=== PATIENT | female | born 1935 | race Caucasian/White ===

== ENCOUNTER 2022-05-22 13:37 | Outpatient (CLI) | payer MEDICARE, SELFPAY ==
--- NOTE | ~2022-05-22 | XR_ITS ---
EXAMINATION: XR tibia fibula RT 2V, XR foot RT min 3V DATE: 05/22/2022 14:07 INDICATION: Swelling and erythema to the distal right tibia/fibula TECHNIQUE: 1. AP and lateral views of the right lower leg were obtained. 2. Dorsal plantar, lateral and 2 oblique views of the right foot were obtained. COMPARISON: None. FINDINGS: Diffuse osteopenia. Bone alignment is normal. No fracture. 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 No cortical erosions or periosteal reaction . Moderate-sized plantar calcaneal spur. No right ankle joint effusion. There is soft tissue swelling with subcutaneous edema about the mid to distal right lower leg extending around the ankle. IMPRESSION: 1. Degenerative skeletal changes at the right foot and knee. No acute osseous abnormality. Reviewed, dictated and finalized at location A. IMPRESSION: 1. Degenerative skeletal changes at the right foot and knee. No acute osseous a bnormality.
== END 2022-05-22 13:38 | disposition home or self-care (01) ==
PROVIDERS: PCP Family Medicine; Visit Provider Physician Assistant Medical
DX: S89.91XA Unspecified injury of right lower leg, initial encounter (principal); M17.11 Unilateral primary osteoarthritis, right knee; M77.31 Calcaneal spur, right foot; M79.89 Other specified soft tissue disorders
CPT/HCPCS: 73590; 73630

== ENCOUNTER 2023-06-27 14:18 | Outpatient (CLI) | payer MEDICARE, SELFPAY ==
--- NOTE | ~2023-06-27 | XR_ITS ---
XR chest 2V DATE: 06/27/2023 14:45 INDICATION: Shortness of breath for 2 months. Occasional right chest pressure. TECHNIQUE: PA and lateral views COMPARISON: 09/14/2009 two-view chest FINDINGS: There is moderate right diaphragmatic elevation. There is mild infiltrate or atelectasis in both lower lung zones. Borderline heart size. There is aortic calcification and unfolding. There is increased prominence of the right hilum compared to 09/14/2009; consider CT thorax for further evaluation as clinically approp riate to exclude right hilar mass lesion or adenopathy. Diffuse osteopenia. Osteoarthritic change at the glenohumeral joints. Thoracolumbar scoliosis and deg enerative change. IMPRESSION: Moderate elevation right diaphragm Mild infiltrate and/or atelectasis in the lower lung zones Right hilum appears more prominent since 09/14/2009; right hilar mass or adenopathy is not excluded. C onsider CT thorax for further evaluation as clinically appropriate Reviewed, dictated and finalized at location L. IMPRESSION: Moderate elevation right diaphragm Mild infiltrate and/or atelectasis in the lower lung zones Right hilum appears more prominent since 09/14/2009; right hilar mass or adenopa thy is not excluded. Consider CT thorax for further evaluation as clinically ap propriate
[2023-06-27 15:11] LABS: Hemoglobin 12.5 g/dL (12.0-15.0); Mean Corpuscular HGB Conc 32.1 g/dl (32-36); Mean Corpuscular Volume 93.8 fl (80-100); Mean Platelet Volume 10.3 fl (7.4-10.4); Platelet Count Result 178 k/mm3 (150-375); Red Blood Count 4.16 M/mm3 (4.2-5.4); Red Cell Distribution Width 13.8 % (11.5-14.5); White Blood Count 8.3 K/mm3 (4.5-10.0)
[2023-06-27 16:09] LABS: Alanine Aminotransferase 27 U/L (6-35); Albumin Level 4.1 g/dL (3.5-5.1); Alkaline Phosphatase 76 U/L (38-126); Anion Gap 7 mmol/L (8-16); Aspartate Amino Transferase 32 U/L (14-36); Bilirubin,Total 0.9 mg/dL (0.2-1.3); Blood Urea Nitrogen 21 mg/dL (7-17); Calcium 9.4 mg/dL (8.4-10.2); Carbon Dioxide 29 mmol/L (22-30); Chloride 100 mmol/L (98-107); Estimated Glomerular Filt Rate 59; Glucose 154 mg/dL (65-110); Potassium 3.5 mmol/L (3.4-5.0); Sodium 136 mmol/L (137-145)
[2023-06-27 16:35] LABS: NT Pro B Type Natriuretic Pept 540 pg/mL (19.9-100)
== END 2023-06-27 14:19 | disposition home or self-care (01) ==
PROVIDERS: PCP Family Medicine; Visit Provider Nurse Practitioner Family
DX: I10 Essential (primary) hypertension (principal); E11.9 Type 2 diabetes mellitus without complications; R06.02 Shortness of breath; R91.8 Other nonspecific abnormal finding of lung field
CPT/HCPCS: 36415; 71046; 80053; 83880; 84443; 85027

== ENCOUNTER 2023-07-11 10:16 | Outpatient (CLI) | payer MEDICARE, SELFPAY ==
--- NOTE | ~2023-07-11 | CT_ITS ---
Clinical Indication: Chest wall mass CT Scan of the Chest with Contrast: Technique: Contiguous sections were acquired throughout the chest after intravenous administration of 75 cc of Omnipaque 350. Dose reduction technique was used on this scan by utilizing automated exposu re control and iterative reconstruction technique. The dose-length product (DLP) was 587.02 mGy-cm. Findings: There is no evidence of any significant mediastinal, hilar or axillary lymphadenopathy. There is no f illing defect in the pulmonary arterial tree to suggest pulmonary embolus. There is no evidence of ao rtic dissection or aneurysm. There is no evidence of pleural or pericardial effusion. The lungs are clear. No pulmonary nodules or infiltrates are noted. Images through the upper abdomen reveal cholelithiasis, and probable 1.1 cm left adrenal nodule. There is suggestion of a partially imaged right supra soft tissue mass at the right breast region, pa rtially excluded from the [id number]. Impression: Exophytic superficial soft tissue mass at the right breast, partially excluded from the [id number] . This is indeterminate on CT imaging, but is suspicious for breast cancer. Correlation with physical exam recommended. Consider tissue sampling if not artery performed. Clear lungs. Cholelithiasis. 1.1 cm left adrenal nodule. Reviewed, dictated and finalized at location . 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 This is indeterminate on CT imaging, but is suspicious for breast cancer. Correlation with physical exam recommended. Consider tissue sampling if not artery performed. Clear lungs. Cholelithiasis. 1.1 cm left adrenal nodule.
== END 2023-07-11 10:17 | disposition home or self-care (01) ==
LOC: ANHIMG 10:18
PROVIDERS: PCP Family Medicine; Visit Provider Nurse Practitioner Family
DX: R22.2 Localized swelling, mass and lump, trunk (principal); K80.20 Calculus of gallbladder without cholecystitis without obstruction; D35.02 Benign neoplasm of left adrenal gland
CPT/HCPCS: 71260; Q9967

== ENCOUNTER 2023-08-28 09:30 | Emergency (ER) | payer MEDICARE, SELFPAY ==
--- NOTE | ~2023-08-28 | CT_ITS ---
EXAMINATION: CT abdomen pelvis w con DATE: 08/28/2023 10:50 INDICATION: Left lower quadrant abdominal pain. Rectal bleeding. TECHNIQUE: Computed tomography (CT) of the abdomen and pelvis was performed with 100 CC Omnipaque 350 intravenous contrast. Automated exposure control and iterative reconstruction technique were employe d. Exam dose: 1243.60 mGy-cm total exam DLP. COMPARISON: 11/05/2014 CT abdomen pelvis FINDINGS: There is mild discoid atelectasis and/or scarring at the lung bases. Coronary artery calcifications. There is chronic skin thickening of the right breast compared to the left, also present on 11/05/2014. No pericardial or pleural effusion. Medial segment left hepatic cyst measuring up to 2.1 cm and 8 mm probable right hepatic cyst. The katharine er is otherwise unremarkable. 2.1 cm gallstone. No gallbladder wall thickening or pericholecystic fluid or fat stranding. No bile d uct or pancreatic duct dilatation. There is an approximately 4 mm cyst of the pancreatic tail. No other pancreatic space-occupying mass lesion is evident. The adrenal glands are unremarkable. Splenic size is within normal range. 2.3 cm upper pole right renal cyst. 7 mm upper pole right renal cyst. Very small lower pole right abisai al cyst. 2.9 cm exophytic lower pole left renal cyst. There is an additional 5 mm probable left renal cyst. No urinary tract calculus or hydroureteronephrosis. There is focal pericolic fat stranding in the region of the proximal sigmoid colon diverticulum consi stent with uncomplicated proximal sigmoid colon acute diverticulitis. There are numerous diverticula of the left and right colon. No evidence of appendicitis. No bowel obstruction or intraperitoneal free air is detected. The urinary bladder is unremarkable. Status post hysterectomy. There is atherosclerotic calcification but normal caliber of the abdominal aorta. No intraperitoneal or retroperitoneal or pelvic mass lesion or adenopathy or ascites is detected. Approximately 4 x 4.8 x 5.7 cm fat-containing umbilical hernia. Multilevel severe degenerative disc disease of the thoracic and lumbar spine. Prominent degenerative changes apophyseal joints with associated grade 1 anterolisthesis at L4-5 and L5-S1. IMPRESSION: Uncomplicated acute focal diverticulitis of proximal sigmoid colon Diverticulosis of left and right colon Cholelithiasis 4 mm pancreatic tail cyst Bilateral renal cysts Status post hysterectomy Reviewed, dictated and finalized at Location A. Reviewed, dictated and finalized at location B. 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
[2023-08-28 09:41] VITALS: BP 207/92; PULSE 102; RESP 22; TEMP 36.5; O2SAT 94
[2023-08-28 10:03] LABS: Basophils Percent Auto 0.4 % (0.2-1.2); Eosinophils Absolute Auto 0.4 K/mm3 (0-0.3); Eosinophils Percent Auto 4.5 % (0-4.4); Hematocrit 38.8 % (37.0-47.0); Hemoglobin 12.5 g/dL (12.0-15.0); Immature Granulocyte Absolute 0.05 K/mm3 (0.00-0.031); Immature Granulocyte Percent A 0.6 % (0-0.5); Lymphocytes Absolute Auto 1.93 K/mm3 (0.9-3.2); Lymphocytes Percent Auto 24.3 % (18.3-44.2); Mean Corpuscular HGB Conc 32.2 g/dl (32-36); Mean Corpuscular Hemoglobin 30.3 pg (26-34); Mean Corpuscular Volume 94.2 fl (80-100); Mean Platelet Volume 10.4 fl (7.4-10.4); Monocytes Absolute Auto 0.5 K/mm3 (0.1-0.6); Monocytes Percent Auto 6.3 % (2.6-8.5); Neutrophils Absolute Auto 5.1 K/mm3 (1.3-6.7); Neutrophils Percent Auto 63.9 % (45.5-73.1); Platelet Count Result 183 k/mm3 (150-375); Red Blood Count 4.12 M/mm3 (4.2-5.4); Red Cell Distribution Width 13.9 % (11.5-14.5)
[2023-08-28 10:15] LABS: Prothrombin Time 13.4 Seconds (11.1-14.7)
[2023-08-28 10:16] VITALS: BP 214/93; PULSE 83; RESP 19; O2SAT 97
[2023-08-28 10:26] LABS: Alanine Aminotransferase 25 U/L (6-35); Albumin Level 4.2 g/dL (3.5-5.1); Alkaline Phosphatase 88 U/L (38-126); Anion Gap 10 mmol/L (8-16); Aspartate Amino Transferase 26 U/L (14-36); Bilirubin,Total 1.2 mg/dL (0.2-1.3); Blood Urea Nitrogen 16 mg/dL (7-17); Calcium 9.3 mg/dL (8.4-10.2); Carbon Dioxide 30 mmol/L (22-30); Chloride 99 mmol/L (98-107); Estimated Glomerular Filt Rate > 60; Glucose 187 mg/dL (65-110); Potassium 3.4 mmol/L (3.4-5.0); Sodium 139 mmol/L (137-145)
[2023-08-28 10:55] VITALS: BP 188/88; PULSE 85; RESP 15; O2SAT 95
[2023-08-28 12:04] VITALS: BP 149/95; PULSE 94; RESP 18; O2SAT 99
--- NOTE | 2023-08-28 12:29 | ED.GENADULT ---
HPI - General Adult General Chief complaint: GI Bleed Stated complaint: rectal bleeding Time Seen by Provider: 08/28/23 09:40 History of Present Illness HPI narrative: Patient is an 88-year-old female who presents ER with left-sided abdominal pain and rectal bleeding. Ongoing over last 3 days. Bright red. No fevers or chills or sweats. No nausea or vomiting. Patient has history of breast cancer and it may be recurring and she does not want to talk about. She reports compliance with home blood pressure medication those elevated upon arrival here. Pain is nonradiating. Has history of diverticulitis. No urinary symptoms. Related Data Home Medications Medication Instructions Recorded Confirmed anastrozole 1 mg tablet (Arimidex) 1 mg PO DAILY 09/23/19 06/27/23 Allergies Allergy/AdvReac Type Severity Reaction Status Date / Time lisinopril Allergy Intermediate CHEST Verified 06/27/23 13:13 PRESSURE,FLUSING, HEART IRREG.. alendronate sodium Allergy Mild Unknown Verified 06/27/23 13:13 Penicillins Allergy Unknown Rash Verified 06/27/23 13:13 codeine AdvReac Unknown Nausea Verified 08/28/23 10:12 tramadol AdvReac Unknown Nausea Verified 08/28/23 10:12 Review of Systems Review of Systems: All systems reviewed & are unremarkable except as noted in HPI and below Constitutional: Constitutional: Reports no additional constitutional complaints ENT: Reports system reviewed and no additional complaints, except as documented Cardiovascular: Cardiovascular: Reports no additional cardiovascular complaints Respiratory: Respiratory: Reports no additional respiratory complaints Gastrointestinal: Gastrointestinal: Reports abdominal pain, Denies constipation, Denies diarrhea, Denies nausea and Denies vomiting Genitourinary: Genitourinary: Reports no additional female genitourinary complaints [facility] Past Medical History Medical History Ataxia BMI 35.0-35.9,adult BMI 36.0-36.9,adult BMI 37.0-37.9, adult Body mass index (BMI) of 40.1 to 44.9 in adult Breast cancer 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 Memory deficit Type 2 diabetes mellitus with hyperglycemia Family History Family History Mother Acute myocardial infarction Hypoglycemia Father Other Breast cancer Cerebrovascular accident Diabetes mellitus Family history of cardiovascular disease Family history of coronary artery disease Family history of malignant neoplasm of male breast Hypertension Social History Social History Smoking status: Never smoker Second hand tobacco smoke exposure: Yes Alcohol intake: never Substance use: never Substance use type: does not use Living arrangements: with family Occupation/Education: retired 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 Gender identity (if verbalized by the patient): Female Exam Narrative: GENERAL: Well-appearing, Obese, and in no acute distress. HEAD: Normocephalic, atraumatic. ENT: Mucous membranes moist. NECK: Supple. CHEST: Clear to auscultation. No respiratory distress. HEART: Regular rate and rhythm. Normal peripheral pulses. ABDOMEN: Soft, tender palpation left lower quadrant that is mild, nondistended. Hemoccult-negative stool. EXTREMITIES: Normal range of motion. No edema. SKIN: Warm, dry, no rash. NEURO: Alert and oriented x3. PSYCH: Normal mood and affect. Course Course Emergency Course: Patient informed of results. Comfortable discharge home. Blood pressure normalized in the ER. Vital Signs Vital signs: Vital Signs Temperature 97.7 F 08/28/23 09:41 Pulse Rate 102 H 08/28/23 09:41 Respiratory Rate 22 H 08/28/23 09:41 Bloo
[2023-08-28 13:15] VITALS: BP 194/71; PULSE 70; RESP 14; O2SAT 96
== END 2023-08-28 13:29 | disposition home or self-care (01) ==
PROVIDERS: Emergency Provider Emergency Medicine; PCP Family Medicine
DX: K57.32 Diverticulitis of large intestine without perforation or abscess without bleeding (principal); E11.9 Type 2 diabetes mellitus without complications; Z85.3 Personal history of malignant neoplasm of breast; Z90.710 Acquired absence of both cervix and uterus; N28.1 Cyst of kidney, acquired; K86.2 Cyst of pancreas; K80.20 Calculus of gallbladder without cholecystitis without obstruction; K57.90 Diverticulosis of intestine, part unspecified, without perforation or abscess without bleeding; Z79.84 Long term (current) use of oral hypoglycemic drugs
CPT/HCPCS: 36415; 74177; 80053; 85025; 85610; 85730; 86850; 86900; 86901; 99284; Q9967

== ENCOUNTER 2023-11-06 12:20 | Outpatient (CLI) | payer MEDICARE, SELFPAY ==
[2023-11-06 13:01] LABS: Magnesium 1.9 mg/dL (1.6-2.3)
[2023-11-06 13:23] LABS: Vitamin D 25 Hydroxy 40.4 ng/mL
== END 2023-11-06 12:21 | disposition home or self-care (01) ==
LOC: ANHLAB 12:22
PROVIDERS: PCP Family Medicine; Visit Provider Nurse Practitioner Family
DX: R25.2 Cramp and spasm (principal); E55.9 Vitamin D deficiency, unspecified
CPT/HCPCS: 36415; 82306; 82607; 83735

== ENCOUNTER 2024-05-26 23:45 | Inpatient (IN) | payer MEDICARE, SELFPAY ==
--- NOTE | ~2024-05-26 | US_ITS ---
EXAMINATION: US venous doppler [facility] DATE: 05/27/2024 17:30 INDICATION: Lower limb swelling. TECHNIQUE: Grayscale ultrasound images without and with compression and Doppler ultrasound images of the bilateral lower extremity veins were obtained. COMPARISON: None. FINDINGS: The visualized portions of right common femoral vein, profunda (deep) femoral vein, femoral vein, pop liteal vein, peroneal veins, posterior tibial veins, and greater saphenous vein outflow are patent. The visualized portions of left common femoral vein, profunda femoral vein, femoral vein, popliteal v ein, peroneal veins, posterior tibial veins, and greater saphenous vein outflow are patent. IMPRESSION: 1. No deep venous thrombosis. Reviewed, dictated and finalized at location A.
--- NOTE | ~2024-05-26 | CT_ITS ---
CT head without contrast Indication: Head injury Technique: Serial scans were obtained through the brain without the administration of contrast. Dose reduction technique was used on this scan by utilizing automated exposure control and iterative recon struction technique. The dose-length product (DLP) was 832.33 mGy-cm. Findings: There is no evidence of intracranial hemorrhage, mass lesion, or acute infarct. The ventri cles and subarachnoid spaces are dilated, consistent with mild atrophy. Low attenuation regions are seen within the periventricular white matter bilaterally, likely representing changes from chronic mi crovascular ischemic disease. There is no evidence of edema, mass effect or midline shift. The visu alized paranasal sinuses and mastoid air cells are clear. Impression: No intracranial hemorrhage, mass, or acute infarct. Atrophy and chronic white matter changes, as above. Reviewed, dictated and finalized at location . Impression: No intracranial hemorrhage, mass, or acute infarct. Atrophy and chronic white matter changes, as above.
--- NOTE | ~2024-05-26 | CT_ITS ---
EXAMINATION:CT diagnostic chest wo con DATE: 05/27/2024 15:02 INDICATION: Pneumonia. TECHNIQUE: Computed tomography (CT) of the chest was performed without intravenous contrast. Automate d exposure control and iterative reconstruction technique were employed. The dose-length product (DLP ) was 602.00 mGy-cm. COMPARISON: Chest CT 07/11/2023, chest single view 05/27/2024 FINDINGS: There is elevation of right hemidiaphragm. The lungs demonstrate mild atelectasis. A calcif ied right lung nodule and calcified mediastinal lymph nodes are consistent with old granulomatous dis ease. No pleural effusion. Cardiomegaly is noted. There are coronary artery calcifications. No perica rdial effusion. There is a 1.8 cm cyst in the liver. There is a gallstone in the gallbladder, which i s normal in size. There are nodules in the thyroid measuring up to 17 mm. Further evaluation is likel y not needed given the patient's age. The central pulmonaries are enlarged, consistent with pulmonary arterial hypertension. There is a 2.5 cm cyst in right kidney. There is a chronic 12 mm mass in left adrenal gland, likely an adenoma. There is diverticulosis of the colon without evidence of diverticu litis. There is severe cervical, thoracic, and lumbar spondylosis. IMPRESSION: 1. Chronic elevation of right hemidiaphragm. 2. Mild atelectasis in the lungs. Reviewed, dictated and finalized at location A.
--- NOTE | ~2024-05-26 | XR_ITS ---
Portable chest x-ray Comparison: 06/27/2023 Clinical History: Syncope Findings: There is mild bibasilar haziness, left worse than right. No pleural effusion. Cardiomedia stinal silhouette is stable. Degenerative change of both shoulders noted. Impression: Mild bibasilar haziness, left worse than right. Correlate for minimal pulmonary edema, versus possibl e infection. Reviewed, dictated and finalized at location . Impression: Mild bibasilar haziness, left worse than right. Correlate for minimal pulmonary edema, versus possible infection.
[2024-05-26 23:45] VITALS: BP 252/126; PULSE 98; RESP 16; TEMP 36.9; O2SAT 96
--- NOTE | 2024-05-26 23:49 | ECG_ITS ---
Test Date: 2024-05-26 23:57:37 Measurements Intervals [place] Rate: 92 P: 8 WV: 167 QRS: -4 QRSD: 103 T: 71 QT: 364 QTc: 450 Interpretive Statements SINUS RHYTHM WITH OCCASIONAL VENTRICULAR PREMATURE COMPLEXES POSSIBLE LEFT ATRIAL ENLARGEMENT [-0.1mV P WAVE IN V1/V2] NONSPECIFIC ST & T-WAVE ABNORMALITY ABNORMAL ECG No previous ECG available for comparison Electronically Signed On 05-27-2024 13:51:38 CDT by Vipul Mccrary M.D.
[2024-05-26 23:53] VITALS: PULSE 100; RESP 15; O2SAT 93
[2024-05-27] VITALS (31 sets, daily range): BP systolic 153–206; BP diastolic 64–97; PULSE 59–118; RESP 13–22; TEMP 35.7–36.7; O2SAT 91–96; BMI 43.6
--- NOTE | 2024-05-27 | ECHO_ITS ---
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 Contrast/Agitated Saline Contrast/Ag. Saline: Definity Amount: 4.00 ml Existing IV Access: Yes IV Access Condition: patent with no signs of infiltration Summary 1. The left ventricular size is mildly dilated. There is moderate eccentric left ventricular hypertrophy. 2. The left ventricular systolic function is mildly reduced. The LVEF is 40-45%. Left Ventricle The left ventricular size is mildly dilated. There is moderate eccentric left ventricular hypertrophy. The left ventricular systolic function is mildly reduced. The LVEF is 40-45%. Right Ventricle The right ventricle size and systolic function is normal. Left Atria Left atrial chamber dimension is normal. Right Atria Right atrial chamber dimension is normal. Aortic Valve Aortic valve is trileaflet. It is sclerotic. There is no evidence of aortic valve stenosis or regurgitation. Pulmonic Valve The pulmonic valve is not well visualized. There is no Doppler color evidence of pulmonic valve regurgitation. Mitral Valve With the mitral valve is sclerotic. There is mild mitral regurgitation. Tricuspid Valve The tricuspid valve is not well visualized. There is trace tricuspid regurgitation. Pericardium/Pleural Pericardium is normal in appearance with no evidence for significant pericardial effusion. Inferior Vena Cava Inferior vena cava is not well visualized. Left Ventricular Outflow Tract Name Value Normal LVOT 2D LVOT Diameter 1.89 cm LVOT Doppler LVOT Peak Gradient 3 mmHg LVOT Mean Gradient 1 mmHg LVOT VTI 20.21 cm LVOT VTI/AV VTI Ratio 0.58 LVOT Stroke Volume 56.72 ml LVOT CO 3.00 l/min LVOT CI 1.49 L/min/m2 Pulmonic Valve Name Value Normal PV Doppler PV Peak Gradient 2 mmHg Mitral Valve Name Value Normal
[2024-05-27 00:17] LABS: Basophils Percent Auto 0.5 % (0.2-1.2); Eosinophils Absolute Auto 0.4 K/mm3 (0-0.3); Eosinophils Percent Auto 4.5 % (0-4.4); Hematocrit 41.7 % (37.0-47.0); Hemoglobin 13.9 g/dL (12.0-15.0); Immature Granulocyte Absolute 0.14 K/mm3 (0.00-0.031); Immature Granulocyte Percent A 1.6 % (0-0.5); Lymphocytes Absolute Auto 2.48 K/mm3 (0.9-3.2); Lymphocytes Percent Auto 28.4 % (18.3-44.2); Mean Corpuscular HGB Conc 33.3 g/dl (32-36); Mean Corpuscular Hemoglobin 31.4 pg (26-34); Mean Corpuscular Volume 94.1 fl (80-100); Mean Platelet Volume 10.5 fl (7.4-10.4); Monocytes Absolute Auto 0.5 K/mm3 (0.1-0.6); Monocytes Percent Auto 6.2 % (2.6-8.5); Neutrophils Absolute Auto 5.2 K/mm3 (1.3-6.7); Neutrophils Percent Auto 58.8 % (45.5-73.1); Platelet Count Result 172 k/mm3 (150-375); Red Blood Count 4.43 M/mm3 (4.2-5.4); Red Cell Distribution Width 13.7 % (11.5-14.5); White Blood Count 8.7 K/mm3 (4.5-10.0)
[2024-05-27 00:23] LABS: Add Urine Microscopic? YES; Appearance Urine Clear (Clear); Bacteria Urine None Seen /hpf; Bilirubin Urine Negative (Negative); Blood Urine Negative (Negative); Color Urine Yellow (Yellow); Glucose Urine UA Trace mg/dL (Negative); Ketones Urine Negative (Negative); Leukocyte Esterase Ur Negative LEU/UL (Negative); Nitrate Urine Negative (Negative); Non Pathogenic Casts 0-2; Protein Urine 3+ mg/dL (Negative); RBC Urine 0-2 /hpf (0-2); Specific Grav Ur 1.008 (1.001-1.035); Squamous Epithelial Cell Urine None Seen /hpf (Few); Urobilinogen Urine 0.2 mg/dL (<2.0); WBC Urine 0-5 /hpf (0-3); pH Urine 7.5 (5.0-9.0)
[2024-05-27 00:28] LABS: Alanine Aminotransferase 37 U/L (6-35); Albumin Level 4.5 g/dL (3.5-5.1); Alkaline Phosphatase 123 U/L (38-126); Anion Gap 10 mmol/L (4-12); Aspartate Amino Transferase 42 U/L (14-36); Bilirubin,Total 0.9 mg/dL (0.2-1.3); Blood Urea Nitrogen 20 mg/dL (7-17); Calcium 9.5 mg/dL (8.4-10.2); Carbon Dioxide 27 mmol/L (22-30); Chloride 99 mmol/L (98-107); Estimated CRCL calculation 79 ml/min; Estimated Glomerular Filt Rate > 60; Glucose 200 mg/dL (65-110); Lactic Acid Reflex 2.2 mmol/L (0.7-2.0); Potassium 3.5 mmol/L (3.4-5.0); Sodium 136 mmol/L (137-145)
[2024-05-27 01:19] LABS: Magnesium 1.7 mg/dL (1.6-2.3)
[2024-05-27 01:32] LABS: Troponin I 0.027 ng/mL (0.000-0.034)
[2024-05-27 03:15] LABS: Reflex Lactic Acid Yes or No Add Lactic
--- NOTE | 2024-05-27 03:45 | ED.GENADULT ---
HPI - General Adult General Chief complaint: Dizziness Stated complaint: FALL, DIZZINESS, HIGH B/P Time Seen by Provider: 05/27/24 00:24 History of Present Illness HPI narrative: Patient is 89-year-old female who presents emergency department with chief complaint of syncope. Patient reports that she became dizzy while she was walking felt lightheaded and then became unresponsive and fell to the ground the patient reports that she felt nauseated afterwards reports she has little bit of a headache patient denies any other injuries when EMS arrived they found the patient to be extremely hypertensive and transported patient to the emergency department. Related Data Allergies Allergy/AdvReac Type Severity Reaction Status Date / Time lisinopril Allergy Intermediate CHEST Verified 02/24/24 15:03 PRESSURE,FLUSING, HEART IRREG.. alendronate sodium Allergy Mild Unknown Verified 02/24/24 15:03 Penicillins Allergy Unknown Rash Verified 02/24/24 15:03 codeine AdvReac Unknown Nausea Verified 02/24/24 15:03 tramadol AdvReac Unknown Nausea Verified 02/24/24 15:03 Review of Systems Review of Systems: A 10 system review of systems was completed on the patient and is negative except for what is stated in the HPI. Nursing and ancillary documentation was reviewed. 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 Memory deficit Type 2 diabetes mellitus with hyperglycemia Surgical History Surgical History History of breast biopsy Family History Family History Mother Acute myocardial infarction Hypoglycemia Father Other Breast cancer Cerebrovascular accident Diabetes mellitus Family history of cardiovascular disease Family history of coronary artery disease Family history of malignant neoplasm of male breast Hypertension Social History Social History Smoking status: Never smoker Second hand tobacco smoke exposure: Yes Alcohol intake: never Substance use: never Substance use type: does not use Do You Feel Safe in your Home?: Yes Lack of Transportation: No Lack of Food: Never True Current Housing: I Have Housing Concerned About Future Housing: No Difficulty Paying Gas/Electric Bills: No Difficulty Paying for Meds: No Currently Unemployed: No Education: High School Diploma/GED Difficulty w/ Childcare or Family Care: No Living arrangements: with family Occupation/Education: retired 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 Gender identity (if verbalized by the patient): Female Exam Narrative: GENERAL: Well-appearing, well-nourished, and in no acute distress. HEAD: Normocephalic, atraumatic. EYES: PERRLA and EOMI. ENT: Nares clear, no rhinorrhea or epistaxis. Mucous membranes moist. NECK: Supple. CHEST: Clear to auscultation. No respiratory distress. HEART: Regular rate and rhythm. No murmur heard. Normal peripheral pulses. ABDOMEN: Soft, nontender, nondistended, normal active bowel sounds. EXTREMITIES: Normal range of motion. No edema. SKIN: Warm, dry, no rash. NEURO: No focal deficits. Alert and oriented x3. PSYCH: Normal mood and affect. Course Vital Signs Vital signs: Vital Signs Temperature 36.9 C 05/26/24 23:45 Pulse Rate 98 05/26/24 23:45 Respiratory Rate 16 05/26/24 23:45 Blood Pressure 252/126 H 05/26/24 23:45 Pulse Oximetry 96 05/26/24 23:45 Oxygen Delivery Ro
[2024-05-27] MEDS: ASPIRIN 81 MG CHEWABLE TABLET 324 MG PO (03:57)
[2024-05-27 04:19] LABS: Lactic Acid 1.8 mmol/L (0.7-2.0)
--- NOTE | 2024-05-27 04:57 | PM.IMHP ---
H&P: HPI History of Present Illness Date/Time: 05/27/24 04:57 Chief Complaint: syncope, hypertensive crisis Narrative: This is an 89-year-old female patient admitted to the hospital for severe hypertension syncope minor head injury. Patient was at home ambulatory with dizzy and fell nearly passing struck the back of her head on the ground. EMS found her severely hypertensive brought her to the emergency department. Patient does take Eliquis. CT scan of the head no evidence of intracranial bleeding. Blood pressure did improve without immediate intervention. EKG nonischemic. No known history of CHF. One-view chest x-ray with possible pulmonary edema and mild cardiomegaly. Patient complaining some chest tightness. Initial troponin was not elevated but was not flat, we will trend troponin. Add BNP and echocardiogram. Nitro paste applied for chest tightness, hypertension and possible pulmonary edema. 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 Memory deficit Type 2 diabetes mellitus with hyperglycemia Surgical History Surgical History History of breast biopsy Family History Family History Mother Acute myocardial infarction Hypoglycemia Father Other Breast cancer Cerebrovascular accident Diabetes mellitus Family history of cardiovascular disease Family history of coronary artery disease Family history of malignant neoplasm of male breast Hypertension Social History Social History Smoking status: Never smoker Second hand tobacco smoke exposure: Yes Alcohol intake: never Substance use: never Substance use type: does not use Do You Feel Safe in your Home?: Yes Lack of Transportation: No Lack of Food: Never True Current Housing: I Have Housing Concerned About Future Housing: No Difficulty Paying Gas/Electric Bills: No Difficulty Paying for Meds: No Currently Unemployed: No Education: High School Diploma/GED Difficulty w/ Childcare or Family Care: No Living arrangements: with family Occupation/Education: retired Additional occupation/education comments: [employer]. Gender identity (if verbalized by the patient): Female Spiritual care concerns: No Meds Home Medications and Allergies Home Medications Medication Instructions Recorded Confirmed Type irbesartan 150 See Rx Instructions .Route 09/03/23 05/27/24 Rx mg-hydrochlorothiazide 12.5 mg .COMPLEX #90 tabs tablet meloxicam 7.5 mg tablet 7.5 mg PO DAILY #30 tabs 11/06/23 05/27/24 Rx albuterol sulfate 90 mcg/actuation 1 inh inhalation Q4H PRN shortness 01/17/24 05/27/24 Rx aerosol inhaler of breath or wheezing #8.5 grams atorvastatin 40 mg tablet See Rx Instructions .Route 04/06/24 05/27/24 Rx .COMPLEX #90 tabs metformin 500 mg tablet See Rx Instructions .Route 04/17/24 05/27/24 Rx .COMPLEX #180 tabs sertraline 50 mg tablet See Rx Instructions .Route 04/22/24 05/27/24 Rx .COMPLEX #180 tabs Allergies Allergy/AdvReac Type Severity Reaction Status Date / Time lisinopril Allergy Intermediate CHEST Verified 02/24/24 15:03 PRESSURE,FLUSING, HEART IRREG.. alendronate sodium Allergy Mild Unknown Verified 02/24/24 15:03 Penicillins Allergy Unknown Rash Verified 02/24/24 15:03 codeine AdvReac Unknown Nausea Verified 02/24/24 15:03
--- NOTE | 2024-05-27 05:00 | ADMGEN ---
This patient, Rhina Vazquez, was admitted to IMU Room 206-01. Patient/family oriented to hospital policies and general routines including ID bracelet, bed and alarms, visiting hours, pain management, procedures, bathroom and other care routines, personal items, smoking policy, room service/diet, and visiting hours. Information on how to activate the Rapid Response Team has been discussed. Patient/Family are encouraged to report perceived risks to care and to ask questions if they do not understand what they are told or what they should do.
[2024-05-27] MEDS: NITROGLYCERIN OINTMENT 1 INCH DOSE TRANSDERM ×4 (06:09→23:31)
[2024-05-27 07:31] LABS: Basophils Percent Auto 0.3 % (0.2-1.2); Eosinophils Absolute Auto 0.1 K/mm3 (0-0.3); Hematocrit 38.5 % (37.0-47.0); Hemoglobin 12.8 g/dL (12.0-15.0); Immature Granulocyte Absolute 0.06 K/mm3 (0.00-0.031); Immature Granulocyte Percent A 0.5 % (0-0.5); Lymphocytes Absolute Auto 1.73 K/mm3 (0.9-3.2); Lymphocytes Percent Auto 14.7 % (18.3-44.2); Mean Corpuscular HGB Conc 33.2 g/dl (32-36); Mean Corpuscular Hemoglobin 31.1 pg (26-34); Mean Corpuscular Volume 93.4 fl (80-100); Mean Platelet Volume 10.3 fl (7.4-10.4); Monocytes Absolute Auto 0.8 K/mm3 (0.1-0.6); Monocytes Percent Auto 6.7 % (2.6-8.5); Neutrophils Percent Auto 76.8 % (45.5-73.1); Platelet Count Result 182 k/mm3 (150-375); Red Blood Count 4.12 M/mm3 (4.2-5.4); Red Cell Distribution Width 13.6 % (11.5-14.5); White Blood Count 11.8 K/mm3 (4.5-10.0)
[2024-05-27 07:37] LABS: Hemoglobin A1C 7.6 % (<5.7)
[2024-05-27 07:46] LABS: Alanine Aminotransferase 32 U/L (6-35); Albumin Level 3.9 g/dL (3.5-5.1); Alkaline Phosphatase 88 U/L (38-126); Anion Gap 7 mmol/L (4-12); Aspartate Amino Transferase 35 U/L (14-36); Bilirubin,Total 0.9 mg/dL (0.2-1.3); Blood Urea Nitrogen 19 mg/dL (7-17); Calcium 8.8 mg/dL (8.4-10.2); Carbon Dioxide 30 mmol/L (22-30); Chloride 99 mmol/L (98-107); Estimated Glomerular Filt Rate > 60; Glucose 211 mg/dL (65-110); Magnesium 1.7 mg/dL (1.6-2.3); Potassium 3.7 mmol/L (3.4-5.0); Sodium 136 mmol/L (137-145)
[2024-05-27 08:02] LABS: NT Pro B Type Natriuretic Pept 1820 pg/mL (19.9-100)
[2024-05-27 08:44] LABS: Glucose Point of Care 267 mg/dl (65-105)
[2024-05-27] MEDS: INSULIN ASPART (*BKC) 100 UNITS/ML SUB-Q ×2 (08:44→17:07)
[2024-05-27] MEDS: IRBESARTAN 150 MG TABLET PO (08:45)
[2024-05-27] MEDS: METOPROLOL TARTRATE 25 MG TABLET PO (08:45)
[2024-05-27] MEDS: SERTRALINE HCL 50 MG TABLET PO ×2 (08:45→20:51)
[2024-05-27] MEDS: MELOXICAM 7.5 MG TABLET PO (08:45)
[2024-05-27] MEDS: ATORVASTATIN 40 MG TABLET PO (08:45)
--- NOTE | 2024-05-27 08:57 | PC.NURSE ---
Lying quietly in bed. Denies pain and discomfort at this time. Rate pain a 0/10. Blood pressure remains elevated 206/68. Discussed plan of care including cardiology consult related to elevated troponin. Furthermore, discussed plan of care to make NPO at this time until [employer] see's patient, to be proactive in the event they would require any specialized testing today. Verbalizes understanding at this time. Discussed goal of care to reduce blood pressure, medications reviewed and given as ordered, see eMAR. Also, discussed plan of care to reduce blood glucose levels, Insulin given as ordered, see eMAR. Denies further questions or comments at this time. No acute distress noted at this time.
--- NOTE | 2024-05-27 10:42 | PM.CNCAR ---
Assessment and Plan Assessment and plan (1) Syncope: Code(s): R55 - Syncope and collapse Status: Acute (2) Hypertension: Code(s): I10 - Essential (primary) hypertension Status: Acute (3) Troponin level elevated: Code(s): R79.89 - Other specified abnormal findings of blood chemistry Status: Acute Plan 89 yo woman with ZACKERY on CPAP, HTN, and DM type 2 presented with syncope and found to be hypertensive Syncope - obtain TTE - no events on telemetry to explain syncope; continue monitoring Chest Pain - troponin elevated; please continue to trend to peak - a discussion was had with the patient on risk and benefits of left heart catheterization and that it is recommended for her given her presentation and elevated biomarkers. However she does not want to proceed with any invasive procedures and understands the risk of foregoing coronary catheterization given her presentation and elevated biomarkers. She also endorsed that she does not want to be full code. Hypertension - transition her metoprolol to carvedilol 12.5mg PO BID and add amlodipine 10mg PO daily History of Present Illness History of Present Illness Consult date/time: 05/27/24 10:42 Requesting physician: Ellis Glynn, RT(R) Reason For Visit: Syncope, Hypertensive urgency Narrative: 89 yo woman with ZACKERY on CPAP, HTN, and DM type 2 presented with syncope. She was sitting on her computer when she got up to go to bed. She does not remember much but she does remember being found on the floor. She does endorse being more short of breath recently. She also occasionally has nonexertional chest pressure that is substernal. She has not noticed that it has been occurring more frequently. She denies ever having other episodes of syncope in the past. She also sleeps on recliner due to right shoulder pain. Denies feeling orthopnea or having episodes of PND. Exercise tolerance: She is mostly homebound and is taken care of by her daughter. The most physical activity that she does is ambulating within the home. 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 Memory deficit Type 2 diabetes mellitus with hyperglycemia Surgical History Surgical History History of breast biopsy Family History Family History Mother Acute myocardial infarction Hypoglycemia Father Other Breast cancer Cerebrovascular accident Diabetes mellitus Family history of cardiovascular disease Family history of coronary artery disease Family history of malignant neoplasm of male breast Hypertension Social History Social History Smoking status: Never smoker Second hand tobacco smoke exposure: Yes Alcohol intake: never Substance use: never Substance use type: does not use Do You Feel Safe in your Home?: Yes Lack of Transportation: No Lack of Food: Never True Current Housing: I Have Housing Concerned About Future Housing: No Difficulty Paying Gas/Electric Bills: No Difficulty Paying for Meds: No Currently Unemployed: No Education: High School Diploma/GED Difficulty w/ Childcare or Family Care: No Living arrangements: with family Occupation/Education: retired 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 Gender identity (if verbalized by the patient): Staceya
[2024-05-27 10:46] LABS: Troponin I 0.335 ng/mL (0.000-0.034)
--- NOTE | 2024-05-27 10:53 | PC.NURSE ---
Dr Correa informed this RN that patient endorsed that she wanted to be a DNR/DNI, please inform primary doctor . This RN, called and reported this information to Dr. Chang, the primary care doctor on the case at this time. Order placed under telephone order with [place] Choudhary as a witness to this conversation.
[2024-05-27 12:27] LABS: Glucose Point of Care 174 mg/dl (65-105)
[2024-05-27] MEDS: PERFLUTREN LIPID MICROSPHERES 1.5 ML VIAL DILUTED TO 10 ML TOTAL VOLUME IV PUSH (14:07)
--- NOTE | 2024-05-27 14:07 | IVDEFINITY ---
Prior to administration of IV Definity the patient was educated on the risks and benefits of the imaging enhancing agent including potential adverse side effects. The patient verbalized understanding. Allergies were verified. No exclusion criteria were identified and at least one of the following inclusion criteria were met: 1) physician request, 2) patient technically difficult to image (per the [place] [employer]ocardi[employer] guidelines of two or more segments not discernable within the apical view), or 3) questionable left ventricular function. ?
--- NOTE | 2024-05-27 14:31 | PM.IMPN ---
Progress Note: A&P Assessment and Plan (1) Syncope: Code(s): R55 - Syncope and collapse Status: Acute Assessment and Plan: Syncope Head CT without signs of intracranial bleeding ECHO pendign Troponin elevated monitor closely (2) Hypertensive crisis: Code(s): I16.9 - Hypertensive crisis, unspecified Status: Acute Assessment and Plan: Chest x-ray with cardiomegaly and equivocal with ulm edema vs PNeumonia Leukocyosis noted CT chest ordered Troponin elevated continue home Irbesartan, metoprolol and HCTZ added titrate off Nitro paste (3) Type 2 diabetes mellitus with hyperglycemia: Qualifiers: Diabetes mellitus prison insulin use: without prison use Qualified Code(s): E11.65 - Type 2 diabetes mellitus with hyperglycemia Code(s): E11.65 - Type 2 diabetes mellitus with hyperglycemia Status: Acute Assessment and Plan: ACHS fingerstick glucose with high dose SSI Hold metformin in hospital (4) Obstructive sleep apnea (adult) (pediatric): Code(s): G47.33 - Obstructive sleep apnea (adult) (pediatric) Status: Acute Assessment and Plan: May use AutoPAP as needed (5) Troponin level elevated: Code(s): R79.89 - Other specified abnormal findings of blood chemistry Status: Acute Assessment and Plan: Troponin elevated 0.430 to 0.335 Patient declined intervention cardiology following that recommends medication treatment Continue COreg, Irbesatan, Amlodipine and Lipitor cardiology following Plan DVT prophylaxis subQ Lovenox Subjective Date/time seen: 05/27/24 14:31 Interval history: Comfortable at bedside and noted she passed out and woke up in the floor at her home. Review of Systems Review of Systems: All systems reviewed & are unremarkable except as noted in HPI and below Exam Narrative: GENERAL: Well-appearing, well-nourished, and in no acute distress. HEAD: Normocephalic, atraumatic. EYES: PERRLA and EOMI. ENT: Nares clear, no rhinorrhea or epistaxis. Mucous membranes moist. NECK: Supple. CHEST: Mild rales worse in the left lower HEART: Regular rate and rhythm. Normal peripheral pulses. ABDOMEN: Soft, nontender, nondistended, normal active bowel sounds. EXTREMITIES: Normal range of motion. Bilateral lower extremity swelling right greater than left SKIN: Warm, dry, no rash. NEURO: No focal deficits. Alert and oriented x3. PSYCH: Normal mood and affect. Objective Data Vital Signs Vital Signs: Vital Signs - 24 hr 05/26/24 23:45 05/27/24 00:48 05/26/24 23:53 Temperature 98.5 F Pulse Rate 98 87 100 Respiratory Rate 16 14 15 Blood Pressure 252/126 H 195/97 H Pulse Oximetry 96 94 93 Oxygen Delivery Room Air 05/27/24 00:10 05/27/24 00:17 05/27/24 00:37 Temperature Pulse Rate 100 105 H 89 Respiratory Rate 22 H 17 15 Blood Pressure Pulse Oximetry 93 93 Oxygen Delivery 05/27/24 00:45 05/27/24 00:46 05/27/24 01:00 Temperature Pulse Rate 89 91 88 Respiratory Rate 17 13 15 Blood Pressure 195/97 H Pulse Oximetry 93 92 94 Oxygen Delivery 05/27/24 01:02 05/27/24 02:04 05/27/24 02:15 Temperature Pulse Rate 92 87 96 Respiratory Rate 17 22 H 18 Blood Pressure 186/91 H Pulse Oximetry 92 91 91 Oxygen Delivery 05/27/24 02:45 05/27/24 03:00 05/27/24 04:12 Temperature Pulse Rate 91 88 88 Respiratory Rate 15 20 15 Blood Pressure 179/84 H Pulse Oximetry 94 93 95 Oxygen Delivery 05/27/24 04:32 05/27/24 04:41 05/27/24 04:50 Temperature 98.0 F Pulse Rate 66 87 92 Respiratory Rate 16 13 20 Blood Pressure 153/82 H 158/82 H 182/92 H Pulse Oximetry 96 95 94 Oxygen Delivery 05/27/24 05:00 05/27/24 08:29 05/27/24 08:45 Temperature 96.6 F L Pulse Rate 92 78 84 Respiratory Rate 20 20 Blood Pressure 206/68 H Pulse Oximetry 94 96 Oxygen Delivery Room Air 05/27/24 10:35 05/27/24 08:00 05/27/24 08:
[2024-05-27 16:55] LABS: Glucose Point of Care 272 mg/dl (65-105)
[2024-05-27 20:36] LABS: Glucose Point of Care 240 mg/dl (65-105)
[2024-05-27] MEDS: carvediloL 12.5 MG TABLET PO (20:51)
[2024-05-27] MEDS: SACUBITRIL/VALSARTAN 49-51 MG TABLET 1 TABLET PO (20:52)
[2024-05-28] VITALS (15 sets, daily range): BP systolic 125–187; BP diastolic 61–76; PULSE 58–81; RESP 16–24; TEMP 36.4–36.9; O2SAT 93–96
[2024-05-28 05:35] LABS: Basophils Percent Auto 0.3 % (0.2-1.2); Eosinophils Absolute Auto 0.5 K/mm3 (0-0.3); Eosinophils Percent Auto 4.9 % (0-4.4); Hematocrit 37.2 % (37.0-47.0); Hemoglobin 12.4 g/dL (12.0-15.0); Immature Granulocyte Absolute 0.06 K/mm3 (0.00-0.031); Immature Granulocyte Percent A 0.6 % (0-0.5); Lymphocytes Absolute Auto 1.62 K/mm3 (0.9-3.2); Lymphocytes Percent Auto 15.2 % (18.3-44.2); Mean Corpuscular HGB Conc 33.3 g/dl (32-36); Monocytes Absolute Auto 0.7 K/mm3 (0.1-0.6); Monocytes Percent Auto 6.8 % (2.6-8.5); Neutrophils Absolute Auto 7.7 K/mm3 (1.3-6.7); Neutrophils Percent Auto 72.2 % (45.5-73.1); Platelet Count Result 177 k/mm3 (150-375); Red Cell Distribution Width 13.7 % (11.5-14.5); White Blood Count 10.7 K/mm3 (4.5-10.0)
[2024-05-28] MEDS: NITROGLYCERIN OINTMENT 1 INCH DOSE TRANSDERM ×4 (05:36→23:49)
[2024-05-28 05:52] LABS: Alanine Aminotransferase 29 U/L (6-35); Albumin Level 3.6 g/dL (3.5-5.1); Alkaline Phosphatase 85 U/L (38-126); Anion Gap 5 mmol/L (4-12); Aspartate Amino Transferase 32 U/L (14-36); Bilirubin,Total 1.2 mg/dL (0.2-1.3); Blood Urea Nitrogen 18 mg/dL (7-17); Calcium 8.8 mg/dL (8.4-10.2); Carbon Dioxide 29 mmol/L (22-30); Chloride 101 mmol/L (98-107); Estimated Glomerular Filt Rate > 60; Glucose 235 mg/dL (65-110); Magnesium 1.8 mg/dL (1.6-2.3); Potassium 3.4 mmol/L (3.4-5.0); Sodium 135 mmol/L (137-145)
[2024-05-28 08:06] LABS: Glucose Point of Care 226 mg/dl (65-105)
[2024-05-28] MEDS: INSULIN ASPART (*BKC) 100 UNITS/ML SUB-Q ×2 (09:11→11:15)
[2024-05-28] MEDS: SERTRALINE HCL 50 MG TABLET PO ×2 (09:13→21:57)
[2024-05-28] MEDS: hydroCHLOROthiazide 12.5 MG CAPSULE PO (09:13)
[2024-05-28] MEDS: ATORVASTATIN 20 MG TABLET PO (09:13)
[2024-05-28] MEDS: EMPAGLIFLOZIN 10 MG TABLET PO (09:16)
[2024-05-28] MEDS: amLODIPine BESYLATE 10 MG TABLET PO (09:16)
[2024-05-28] MEDS: ENOXAPARIN 40 MG/0.4 ML SYRINGE SUB-Q (09:16)
[2024-05-28] MEDS: carvediloL 12.5 MG TABLET PO ×2 (09:16→21:57)
[2024-05-28] MEDS: SACUBITRIL/VALSARTAN 49-51 MG TABLET 1 TABLET PO (09:16)
[2024-05-28] MEDS: MELOXICAM 7.5 MG TABLET PO (09:17)
[2024-05-28 09:39] LABS: Glucose Point of Care 373 mg/dl (65-105)
[2024-05-28 09:41] LABS: Troponin I 0.106 ng/mL (0.000-0.034)
--- NOTE | 2024-05-28 10:09 | PM.PNCARD ---
Progress Note: A&P Assessment and Plan (1) NSTEMI (non-ST elevated myocardial infarction): Code(s): I21.4 - Non-ST elevation (NSTEMI) myocardial infarction Status: Acute (2) Cardiomyopathy: Code(s): I42.9 - Cardiomyopathy, unspecified Status: Acute Plan 89 yo woman with ZACKERY on CPAP, HTN, and DM type 2 presented with syncope and found to be hypertensive NSTEMI - patient does have mildly reduced lv systolic function; however at this time, she wants to be medically managed and wanted to be DNR - risk and benefits of cardiac cath was once again discussed with patient who at this time does not wish to have medical management and would like DNR - can start asa 81mg and plavix 75mg - can uptitrate atorvastatin to 40mg qhs - continue coreg 12.5mg PO BID Cardiomyopathy - euvolemic - can uptitrate entresto to 97-103 - recommend physical therapy and out of bed to chair today Subjective Date/time seen: 05/28/24 10:09 Interval history: has some upper left back pain this morning with some tenderness. denies chest pain and shortness of breath. feels tired this morning Review of Systems Review of Systems: All systems reviewed & are unremarkable except as noted in HPI and below Exam Const: General: comfortable HENMT: Mouth: Yes moist mucous membranes Eyes: EOM: EOMs intact bilaterally Neck: Neck: no JVD Resp: Auscultation: clear to auscultation bilaterally Cardio: Heart sounds: no gallops and no murmurs GI: GI Palp: Yes Soft to palpation Neuro: Speech: normal speech Extrem: General: normal to inspection Objective Data Vital Signs Vital Signs: Vital Signs - 24 hr 05/27/24 10:35 05/27/24 11:44 05/27/24 12:00 Temperature 35.7 C L Pulse Rate 64 59 L Respiratory Rate 18 Blood Pressure 193/82 H Pulse Oximetry 94 93 Oxygen Delivery Room Air 05/27/24 12:00 05/27/24 16:08 05/27/24 16:00 Temperature 36.3 C L Pulse Rate 64 68 72 Respiratory Rate 18 20 Blood Pressure 173/80 H Pulse Oximetry 93 93 Oxygen Delivery Room Air 05/27/24 16:00 05/27/24 18:00 05/27/24 19:58 Temperature 36.4 C Pulse Rate 68 60 73 Respiratory Rate 20 20 Blood Pressure 173/68 H Pulse Oximetry 93 95 Oxygen Delivery Room Air 05/27/24 20:51 05/27/24 20:00 05/27/24 20:00 Temperature Pulse Rate 79 64 Respiratory Rate Blood Pressure Pulse Oximetry Oxygen Delivery Room Air 05/27/24 22:00 05/27/24 23:26 05/27/24 23:51 Temperature 36.2 C L Pulse Rate 64 64 Respiratory Rate 20 Blood Pressure 173/64 H Pulse Oximetry 92 Oxygen Delivery Room Air 05/28/24 00:00 05/28/24 02:00 05/28/24 03:43 Temperature Pulse Rate 58 L 64 Respiratory Rate Blood Pressure Pulse Oximetry Oxygen Delivery Room Air 05/28/24 04:18 05/28/24 04:00 05/28/24 06:00 Temperature 36.4 C Pulse Rate 67 64 64 Respiratory Rate 18 Blood Pressure 157/64 H Pulse Oximetry 93 Oxygen Delivery 05/28/24 08:00 05/28/24 09:16 Temperature 36.9 C Pulse Rate 74 76 Respiratory Rate 16 Blood Pressure 187/61 H Pulse Oximetry 95 Oxygen Delivery Intake/Output Intake/Output: Intake & Output 05/25/24 05/26/24 05/27/24 05/28/24 23:59 23:59 23:59 23:59 Intake Total 740 1270 Output Total 1500 1000 Balance -760 270 Meds/Results Medications: Active Medications Generic Name Dose Route Start Last Admin Trade Name Freq PRN Reason Stop Dose Admin Acetaminophen 650 mg 05/27/24 05:23 Acetaminophen 325 Mg Tablet PO Q4H PRN Pain, headache, fever Albuterol 2 puff 05/27/24 05:27 Albuterol Sulfate (*Sp) Aerosol 1 Puff INHALATION Q4H PRN shortness of breath or wheezing Amlodipine Besylate 10 mg 05/28/24 09:00 05/28/24 09:16 Amlodipine Besylate 10 Mg Tablet PO 10 mg DAILY MARY Administration Atorvastatin Calcium 20 mg 05/28/24 09:00 05/28/24 09:13 Atorvastatin 20 Mg Tablet PO
[2024-05-28] MEDS: CLOPIDOGREL BISULFATE 75 MG TABLET PO (11:08)
[2024-05-28] MEDS: ASPIRIN 81 MG ENTERIC TABLET PO (11:08)
[2024-05-28 15:58] LABS: Glucose Point of Care 196 mg/dl (65-105)
--- NOTE | 2024-05-28 17:03 | PM.IMPN ---
Progress Note: A&P Assessment and Plan (1) Syncope: Code(s): R55 - Syncope and collapse Status: Acute Assessment and Plan: Syncope Head CT without signs of intracranial bleeding ECHO pendign Troponin elevated monitor closely (2) Hypertensive crisis: Code(s): I16.9 - Hypertensive crisis, unspecified Status: Acute Assessment and Plan: Chest x-ray with cardiomegaly and equivocal with pulm edema Leukocyosis noted CT chest negative for Pneumonia or pulm edema Troponin elevated continue home Irbesartan, metoprolol and HCTZ added titrate off Nitro paste (3) Type 2 diabetes mellitus with hyperglycemia: Qualifiers: Diabetes mellitus assisted insulin use: without assisted use Qualified Code(s): E11.65 - Type 2 diabetes mellitus with hyperglycemia Code(s): E11.65 - Type 2 diabetes mellitus with hyperglycemia Status: Acute Assessment and Plan: ACHS fingerstick glucose with high dose SSI Hold metformin in hospital (4) Obstructive sleep apnea (adult) (pediatric): Code(s): G47.33 - Obstructive sleep apnea (adult) (pediatric) Status: Acute Assessment and Plan: May use AutoPAP as needed (5) Troponin level elevated: Code(s): R79.89 - Other specified abnormal findings of blood chemistry Status: Acute Assessment and Plan: Troponin elevated 0.430 to 0.335 to 0.106 Patient declined intervention cardiology following that recommends medication treatment Continue Coreg, Irbesatan, Amlodipine and Lipitor cardiology following Plan DVT prophylaxis subQ Lovenox awaiting PT/OT eval for discharge disposition Subjective Date/time seen: 05/28/24 17:03 Interval history: Patient comfortable at beddside Still does not want cardiac cath and troponin trending downwards Review of Systems Review of Systems: All systems reviewed & are unremarkable except as noted in HPI and below Exam Narrative: GENERAL: Well-appearing, well-nourished, and in no acute distress. HEAD: Normocephalic, atraumatic. EYES: PERRLA and EOMI. ENT: Nares clear, no rhinorrhea or epistaxis. Mucous membranes moist. NECK: Supple. CHEST: Mild rales worse in the left lower HEART: Regular rate and rhythm. Normal peripheral pulses. ABDOMEN: Soft, nontender, nondistended, normal active bowel sounds. EXTREMITIES: Normal range of motion. Bilateral lower extremity swelling right greater than left SKIN: Warm, dry, no rash. NEURO: No focal deficits. Alert and oriented x3. PSYCH: Normal mood and affect. Objective Data Vital Signs Vital Signs: Vital Signs - 24 hr 05/27/24 18:00 05/27/24 19:58 05/27/24 20:51 Temperature 97.6 F Pulse Rate 60 73 79 Respiratory Rate 20 Blood Pressure 173/68 H Pulse Oximetry 95 Oxygen Delivery 05/27/24 20:00 05/27/24 20:00 05/27/24 22:00 Temperature Pulse Rate 64 64 Respiratory Rate Blood Pressure Pulse Oximetry Oxygen Delivery Room Air 05/27/24 23:26 05/27/24 23:51 05/28/24 00:00 Temperature 97.1 F L Pulse Rate 64 58 L Respiratory Rate 20 Blood Pressure 173/64 H Pulse Oximetry 92 Oxygen Delivery Room Air 05/28/24 02:00 05/28/24 03:43 05/28/24 04:18 Temperature 97.6 F Pulse Rate 64 67 Respiratory Rate 18 Blood Pressure 157/64 H Pulse Oximetry 93 Oxygen Delivery Room Air 05/28/24 04:00 05/28/24 06:00 05/28/24 08:00 Temperature 98.4 F Pulse Rate 64 64 74 Respiratory Rate 16 Blood Pressure 187/61 H Pulse Oximetry 95 Oxygen Delivery 05/28/24 09:16 05/28/24 12:00 05/28/24 08:00 Temperature 98.2 F Pulse Rate 76 60 81 Respiratory Rate 24 H Blood Pressure 125/76 Pulse Oximetry 96 Oxygen Delivery 05/28/24 10:00 05/28/24 12:00 05/28/24 08:00 Temperature Pulse Rate 66 65 Respiratory Rate Blood Pressure Pulse Oximetry Oxygen Delivery Room Air 05/28/24 12:00 05/28/24 14:00 10
--- NOTE | 2024-05-28 18:03 | PC.NURSE ---
Patient received from IMU per bed at 1803. Patient oriented to the room.
--- NOTE | 2024-05-28 18:10 | PC.NURSE ---
This patient, Rhina Vazquez, was transferred to [facility] on 05/28/24 at 1800. Personal belongings sent with patient. Report given to Accepting RN. Appropriate documentation sent with patient.
--- NOTE | 2024-05-28 19:52 | PC.NURSE ---
Patient paperwork received from [employer] for review. DNR placed into chart.
[2024-05-28 20:47] LABS: Glucose Point of Care 223 mg/dl (65-105)
--- NOTE | 2024-05-28 20:55 | PC.NURSE ---
Pharmacy notified about missing medications(entresto and coreg).
[2024-05-28] MEDS: SACUBITRIL/VALSARTAN 97-103 MG TABLET 1 TAB PO (21:57)
[2024-05-29] VITALS (13 sets, daily range): BP systolic 105–135; BP diastolic 46–56; PULSE 54–60; RESP 16; TEMP 36.5–36.8; O2SAT 94–97
[2024-05-29] MEDS: NITROGLYCERIN OINTMENT 1 INCH DOSE TRANSDERM (05:55)
[2024-05-29 06:36] LABS: Basophils Absolute Auto 0.1 K/mm3 (0.0-0.1); Basophils Percent Auto 0.5 % (0.2-1.2); Eosinophils Absolute Auto 0.7 K/mm3 (0-0.3); Eosinophils Percent Auto 6.7 % (0-4.4); Hematocrit 41.9 % (37.0-47.0); Hemoglobin 13.7 g/dL (12.0-15.0); Immature Granulocyte Absolute 0.07 K/mm3 (0.00-0.031); Immature Granulocyte Percent A 0.7 % (0-0.5); Lymphocytes Absolute Auto 2.34 K/mm3 (0.9-3.2); Lymphocytes Percent Auto 22.8 % (18.3-44.2); Mean Corpuscular HGB Conc 32.7 g/dl (32-36); Mean Corpuscular Hemoglobin 30.8 pg (26-34); Mean Corpuscular Volume 94.2 fl (80-100); Mean Platelet Volume 10.8 fl (7.4-10.4); Monocytes Absolute Auto 0.7 K/mm3 (0.1-0.6); Monocytes Percent Auto 7.2 % (2.6-8.5); Neutrophils Absolute Auto 6.4 K/mm3 (1.3-6.7); Neutrophils Percent Auto 62.1 % (45.5-73.1); Platelet Count Result 185 k/mm3 (150-375); Red Blood Count 4.45 M/mm3 (4.2-5.4); Red Cell Distribution Width 13.9 % (11.5-14.5); White Blood Count 10.3 K/mm3 (4.5-10.0)
[2024-05-29 06:52] LABS: Alanine Aminotransferase 29 U/L (6-35); Albumin Level 3.8 g/dL (3.5-5.1); Alkaline Phosphatase 81 U/L (38-126); Anion Gap 6 mmol/L (4-12); Aspartate Amino Transferase 30 U/L (14-36); Bilirubin,Total 1.3 mg/dL (0.2-1.3); Blood Urea Nitrogen 21 mg/dL (7-17); Calcium 8.9 mg/dL (8.4-10.2); Carbon Dioxide 31 mmol/L (22-30); Chloride 101 mmol/L (98-107); Estimated Glomerular Filt Rate > 60; Glucose 221 mg/dL (65-110); Magnesium 2.1 mg/dL (1.6-2.3); Potassium 3.8 mmol/L (3.4-5.0); Sodium 138 mmol/L (137-145)
[2024-05-29 08:01] LABS: Glucose Point of Care 213 mg/dl (65-105)
[2024-05-29] MEDS: ENOXAPARIN 40 MG/0.4 ML SYRINGE SUB-Q (08:18)
[2024-05-29] MEDS: MELOXICAM 7.5 MG TABLET PO (08:18)
[2024-05-29] MEDS: ATORVASTATIN 20 MG TABLET PO (08:18)
[2024-05-29] MEDS: CLOPIDOGREL BISULFATE 75 MG TABLET PO (08:19)
[2024-05-29] MEDS: EMPAGLIFLOZIN 10 MG TABLET PO (08:19)
[2024-05-29] MEDS: SERTRALINE HCL 50 MG TABLET PO ×2 (08:19→20:53)
[2024-05-29] MEDS: INSULIN ASPART (*BKC) 100 UNITS/ML SUB-Q ×3 (08:19→17:12)
[2024-05-29] MEDS: SACUBITRIL/VALSARTAN 97-103 MG TABLET 1 TAB PO ×2 (08:19→20:53)
[2024-05-29] MEDS: carvediloL 12.5 MG TABLET PO ×2 (08:19→20:53)
[2024-05-29] MEDS: hydroCHLOROthiazide 12.5 MG CAPSULE PO (08:19)
[2024-05-29] MEDS: amLODIPine BESYLATE 10 MG TABLET PO (08:19)
[2024-05-29] MEDS: ASPIRIN 81 MG ENTERIC TABLET PO (08:19)
--- NOTE | 2024-05-29 09:19 | PM.PNCARD ---
Progress Note: A&P Assessment and Plan (1) NSTEMI (non-ST elevated myocardial infarction): Code(s): I21.4 - Non-ST elevation (NSTEMI) myocardial infarction Status: Acute (2) Cardiomyopathy: Code(s): I42.9 - Cardiomyopathy, unspecified Status: Acute Plan 89 yo woman with ZACKERY on CPAP, HTN, and DM type 2 presented with syncope and found to be hypertensive NSTEMI - patient does have mildly reduced lv systolic function; however at this time, she wants to be medically managed and wanted to be DNR - risk and benefits of cardiac cath was once again discussed with patient who at this time does not wish to have medical management and would like DNR - asa 81mg, plavix 75mg, atorvastatin 40mg qhs, coreg 12.5mg PO BID Cardiomyopathy - euvolemic - continue entresto 97-103 - recommend physical therapy and out of bed to chair today Cardiology to sign off at this time Please call with additional questions Subjective Date/time seen: 05/29/24 09:19 Interval history: no chest pain or dyspnea. feels fatigued Review of Systems Review of Systems: All systems reviewed & are unremarkable except as noted in HPI and below Exam Const: Other: fatigue HENMT: Mouth: Yes moist mucous membranes Eyes: EOM: EOMs intact bilaterally Neck: Neck: no JVD Resp: Effort & Inspection: normal respiratory effort Auscultation: clear to auscultation bilaterally Cardio: Rate: regular rate Heart sounds: no gallops, no murmurs and no rubs Neuro: Speech: normal speech Extrem: General: normal to inspection Psych: Affect: normal affect Objective Data Vital Signs Vital Signs: Vital Signs - 24 hr 05/28/24 12:00 05/28/24 10:00 05/28/24 12:00 Temperature 36.8 C Pulse Rate 60 66 65 Respiratory Rate 24 H Blood Pressure 125/76 Pulse Oximetry 96 Oxygen Delivery 05/28/24 12:00 05/28/24 14:00 05/28/24 16:00 Temperature 36.7 C Pulse Rate 58 L 58 L Respiratory Rate 24 H Blood Pressure 146/69 H Pulse Oximetry 95 Oxygen Delivery Room Air 05/28/24 16:00 05/28/24 20:00 05/28/24 20:00 Temperature Pulse Rate 58 L 64 Respiratory Rate Blood Pressure Pulse Oximetry Oxygen Delivery Room Air 05/28/24 21:57 05/28/24 22:56 05/29/24 00:00 Temperature 36.8 C Pulse Rate 76 68 59 L Respiratory Rate 20 Blood Pressure 147/70 H Pulse Oximetry 94 Oxygen Delivery 05/28/24 21:24 05/29/24 04:00 05/29/24 08:19 Temperature Pulse Rate 59 L 60 Respiratory Rate Blood Pressure Pulse Oximetry 94 Oxygen Delivery Room Air Intake/Output Intake/Output: Intake & Output 05/26/24 05/27/24 05/28/24 05/29/24 23:59 23:59 23:59 23:59 Intake Total 740 2210 240 Output Total 1500 2900 450 Vvzqyja -776 -690 -210 Meds/Results Medications: Active Medications Generic Name Dose Route Start Last Admin Trade Name Freq PRN Reason Stop Dose Admin Acetaminophen 650 mg 05/27/24 05:23 Acetaminophen 325 Mg Tablet PO Q4H PRN Pain, headache, fever Albuterol 2 puff 05/27/24 05:27 Albuterol Sulfate (*Sp) Aerosol 1 Puff INHALATION Q4H PRN shortness of breath or wheezing Amlodipine Besylate 10 mg 05/28/24 09:00 05/29/24 08:19 Amlodipine Besylate 10 Mg Tablet PO 10 mg DAILY MARY Administration Aspirin 81 mg 05/28/24 10:15 05/29/24 08:19 Aspirin 81 Mg Enteric Tablet PO 81 mg QAM MARY Administration Atorvastatin Calcium 20 mg 05/28/24 09:00 05/29/24 08:18 Atorvastatin 20 Mg Tablet PO 20 mg DAILY MARY Administration Carvedilol 12.5 mg 05/27/24 21:00 05/29/24 08:19 Carvedilol 12.5 Mg Tablet PO 12.5 mg Q12HR MARY Administration Clopidogrel Bisulfate 75 mg 05/28/24 10:15 05/29/24 08:19 Clopidogrel Bisulfate 75 Mg Tablet PO 75 mg QAM MARY Administration Dextrose 12.5 gm 05/27/24 05:05 Dextrose 50% 25 Gm/50 Ml Syringe IV PUSH PRN PRN Hypoglycemia Protocol
[2024-05-29 11:53] LABS: Glucose Point of Care 350 mg/dl (65-105)
--- NOTE | 2024-05-29 14:44 | PM.IMPN ---
Progress Note: A&P Assessment and Plan (1) Syncope: Code(s): R55 - Syncope and collapse Status: Acute Assessment and Plan: Syncope Head CT without signs of intracranial bleeding ECHO showed EF 40-45% Troponin elevated, declined intervention Patient dizzy this morning, nitro paste discontinued (2) Hypertensive crisis: Code(s): I16.9 - Hypertensive crisis, unspecified Status: Acute Assessment and Plan: Chest x-ray with cardiomegaly and equivocal with pulm edema CT chest negative for Pneumonia or pulm edema Troponin elevated continue home Irbesartan, metoprolol and HCTZ added stop Nitro and contieu above meds (3) Type 2 diabetes mellitus with hyperglycemia: Qualifiers: Diabetes mellitus retirement insulin use: without extermination inspector use Qualified Code(s): E11.65 - Type 2 diabetes mellitus with hyperglycemia Code(s): E11.65 - Type 2 diabetes mellitus with hyperglycemia Status: Acute Assessment and Plan: ACHS fingerstick glucose with high dose SSI Hold metformin in hospital (4) Obstructive sleep apnea (adult) (pediatric): Code(s): G47.33 - Obstructive sleep apnea (adult) (pediatric) Status: Acute Assessment and Plan: May use AutoPAP as needed (5) Troponin level elevated: Code(s): R79.89 - Other specified abnormal findings of blood chemistry Status: Acute Assessment and Plan: Troponin elevated 0.430 to 0.335 to 0.106 Patient declined intervention cardiology following that recommends medication treatment Continue Coreg, Irbesatan, Amlodipine and Lipitor cardiology following Plan DVT prophylaxis subQ Lovenox awaiting PT/OT eval for discharge disposition Subjective Date/time seen: 05/29/24 14:44 Interval history: Patient was getting working with therapy the first time since amdission and felt dizzy will continue PT eval Review of Systems Review of Systems: All systems reviewed & are unremarkable except as noted in HPI and below Exam Narrative: GENERAL: Well-appearing, well-nourished, and in no acute distress. HEAD: Normocephalic, atraumatic. EYES: PERRLA and EOMI. ENT: Nares clear, no rhinorrhea or epistaxis. Mucous membranes moist. NECK: Supple. CHEST: Mild rales worse in the left lower HEART: Regular rate and rhythm. Normal peripheral pulses. ABDOMEN: Soft, nontender, nondistended, normal active bowel sounds. EXTREMITIES: Normal range of motion. Bilateral lower extremity swelling right greater than left SKIN: Warm, dry, no rash. NEURO: No focal deficits. Alert and oriented x3. PSYCH: Normal mood and affect. Objective Data Vital Signs Vital Signs: Vital Signs - 24 hr 05/28/24 16:00 05/28/24 16:00 05/28/24 20:00 Temperature 98.1 F Pulse Rate 58 L 58 L 64 Respiratory Rate 24 H Blood Pressure 146/69 H Pulse Oximetry 95 Oxygen Delivery 05/28/24 20:00 05/28/24 21:57 05/28/24 22:56 Temperature 98.3 F Pulse Rate 76 68 Respiratory Rate 20 Blood Pressure 147/70 H Pulse Oximetry 94 Oxygen Delivery Room Air 05/29/24 00:00 05/28/24 21:24 05/29/24 04:00 Temperature Pulse Rate 59 L 59 L Respiratory Rate Blood Pressure Pulse Oximetry 94 Oxygen Delivery Room Air 05/29/24 08:19 05/29/24 08:25 05/29/24 10:47 Temperature Pulse Rate 60 Respiratory Rate Blood Pressure Pulse Oximetry Oxygen Delivery Room Air Room Air 05/29/24 12:04 05/29/24 08:04 05/29/24 14:00 Temperature 98.3 F Pulse Rate 54 L 59 L 60 Respiratory Rate 16 Blood Pressure 116/46 L Pulse Oximetry 97 Oxygen Delivery Intake/Output Intake/Output: Intake & Output 05/26/24 05/27/24 05/28/24 05/29/24 23:59 23:59 23:59 23:59 Intake Total 740 2210 480 Output Total 1500 2900 450 Balance -760 -690 30 Meds/Results Medications: Active Medications Generic Name Dose Route Start Last Admin Trade Name Freq PRN Reason Sto
[2024-05-29 16:44] LABS: Glucose Point of Care 305 mg/dl (65-105)
[2024-05-29] MEDS: INSULIN ASPART (*BKC) 100 UNITS/ML 6 UNITS SUB-Q (20:53)
[2024-05-30] VITALS (12 sets, daily range): BP systolic 105–154; BP diastolic 49–67; PULSE 40–83; RESP 16–19; TEMP 36.2–36.7; O2SAT 93–95
[2024-05-30 05:44] LABS: Basophils Percent Auto 0.4 % (0.2-1.2); Eosinophils Absolute Auto 0.6 K/mm3 (0-0.3); Eosinophils Percent Auto 6.7 % (0-4.4); Hematocrit 38.4 % (37.0-47.0); Hemoglobin 12.7 g/dL (12.0-15.0); Immature Granulocyte Absolute 0.05 K/mm3 (0.00-0.031); Immature Granulocyte Percent A 0.6 % (0-0.5); Lymphocytes Absolute Auto 1.99 K/mm3 (0.9-3.2); Lymphocytes Percent Auto 21.9 % (18.3-44.2); Mean Corpuscular HGB Conc 33.1 g/dl (32-36); Mean Corpuscular Hemoglobin 31.2 pg (26-34); Mean Corpuscular Volume 94.3 fl (80-100); Mean Platelet Volume 10.8 fl (7.4-10.4); Monocytes Absolute Auto 0.7 K/mm3 (0.1-0.6); Monocytes Percent Auto 7.3 % (2.6-8.5); Neutrophils Absolute Auto 5.7 K/mm3 (1.3-6.7); Neutrophils Percent Auto 63.1 % (45.5-73.1); Platelet Count Result 168 k/mm3 (150-375); Red Blood Count 4.07 M/mm3 (4.2-5.4); Red Cell Distribution Width 13.9 % (11.5-14.5); White Blood Count 9.1 K/mm3 (4.5-10.0)
[2024-05-30 05:59] LABS: Alanine Aminotransferase 28 U/L (6-35); Albumin Level 3.5 g/dL (3.5-5.1); Alkaline Phosphatase 76 U/L (38-126); Anion Gap 7 mmol/L (4-12); Aspartate Amino Transferase 29 U/L (14-36); Bilirubin,Total 1.1 mg/dL (0.2-1.3); Blood Urea Nitrogen 33 mg/dL (7-17); Calcium 8.7 mg/dL (8.4-10.2); Carbon Dioxide 28 mmol/L (22-30); Chloride 102 mmol/L (98-107); Estimated Glomerular Filt Rate 59; Glucose 213 mg/dL (65-110); Magnesium 2.2 mg/dL (1.6-2.3); Potassium 3.3 mmol/L (3.4-5.0); Sodium 137 mmol/L (137-145)
[2024-05-30 08:11] LABS: Glucose Point of Care 339 mg/dl (65-105)
[2024-05-30 08:41] LABS: Glucose Point of Care 243 mg/dl (65-105)
[2024-05-30] MEDS: SACUBITRIL/VALSARTAN 97-103 MG TABLET 1 TAB PO ×2 (09:08→21:34)
[2024-05-30] MEDS: CLOPIDOGREL BISULFATE 75 MG TABLET PO (09:08)
[2024-05-30] MEDS: hydroCHLOROthiazide 12.5 MG CAPSULE PO (09:08)
[2024-05-30] MEDS: MELOXICAM 7.5 MG TABLET PO (09:08)
[2024-05-30] MEDS: ATORVASTATIN 20 MG TABLET PO (09:08)
[2024-05-30] MEDS: ENOXAPARIN 40 MG/0.4 ML SYRINGE SUB-Q (09:08)
[2024-05-30] MEDS: carvediloL 12.5 MG TABLET PO ×2 (09:08→21:34)
[2024-05-30] MEDS: ASPIRIN 81 MG ENTERIC TABLET PO (09:08)
[2024-05-30] MEDS: SERTRALINE HCL 50 MG TABLET PO ×2 (09:08→21:34)
[2024-05-30] MEDS: amLODIPine BESYLATE 10 MG TABLET PO (09:08)
[2024-05-30] MEDS: INSULIN ASPART (*BKC) 100 UNITS/ML SUB-Q ×3 (09:09→17:33)
[2024-05-30] MEDS: EMPAGLIFLOZIN 10 MG TABLET PO (09:09)
--- NOTE | 2024-05-30 10:31 | PC.NURSE ---
Patient sitting in the chair eating breakfast. Therapy just left the room. Patient states she is doing well but concentrating on breakfast right now. No complaints of pain. UPDATE: 1000-Family at bedside. Questions about medications addressed. No further needs or concerns at this time.
[2024-05-30 12:10] LABS: Glucose Point of Care 325 mg/dl (65-105)
--- NOTE | 2024-05-30 14:16 | PM.IMPN ---
Progress Note: A&P Assessment and Plan (1) Syncope: Code(s): R55 - Syncope and collapse Status: Acute Assessment and Plan: Syncope Head CT without signs of intracranial bleeding ECHO showed EF 40-45% Troponin elevated, declined intervention Not feeling dizzy anymore (2) Hypertensive crisis: Code(s): I16.9 - Hypertensive crisis, unspecified Status: Acute Assessment and Plan: Chest x-ray with cardiomegaly and equivocal with pulm edema CT chest negative for Pneumonia or pulm edema Troponin elevated continue home Irbesartan, metoprolol and HCTZ added stop Nitro and contieu above meds (3) Type 2 diabetes mellitus with hyperglycemia: Qualifiers: Diabetes mellitus shelter insulin use: without terminal makeup operator use Qualified Code(s): E11.65 - Type 2 diabetes mellitus with hyperglycemia Code(s): E11.65 - Type 2 diabetes mellitus with hyperglycemia Status: Acute Assessment and Plan: ACHS fingerstick glucose with high dose SSI Hold metformin in hospital (4) Obstructive sleep apnea (adult) (pediatric): Code(s): G47.33 - Obstructive sleep apnea (adult) (pediatric) Status: Acute Assessment and Plan: May use AutoPAP as needed (5) Troponin level elevated: Code(s): R79.89 - Other specified abnormal findings of blood chemistry Status: Acute Assessment and Plan: Troponin elevated 0.430 to 0.335 to 0.106 Patient declined intervention cardiology following that recommends medication treatment Continue Coreg, Irbesatan, Amlodipine and Lipitor cardiology following Plan DVT prophylaxis subQ Lovenox awaiting PT/OT eval for discharge disposition Subjective Date/time seen: 05/30/24 14:16 Interval history: Patient comfortable at bedside and does not complain of dizziness awaiting PT/OT Review of Systems Review of Systems: All systems reviewed & are unremarkable except as noted in HPI and below Exam Narrative: GENERAL: Well-appearing, well-nourished, and in no acute distress. HEAD: Normocephalic, atraumatic. EYES: PERRLA and EOMI. ENT: Nares clear, no rhinorrhea or epistaxis. Mucous membranes moist. NECK: Supple. CHEST: Mild rales worse in the left lower HEART: Regular rate and rhythm. Normal peripheral pulses. ABDOMEN: Soft, nontender, nondistended, normal active bowel sounds. EXTREMITIES: Normal range of motion. Bilateral lower extremity swelling right greater than left SKIN: Warm, dry, no rash. NEURO: No focal deficits. Alert and oriented x3. PSYCH: Normal mood and affect. Objective Data Vital Signs Vital Signs: Vital Signs - 24 hr 05/29/24 16:05 05/29/24 16:00 05/29/24 20:53 Temperature 98.3 F Pulse Rate 60 60 58 L Respiratory Rate 16 Blood Pressure 116/46 L Pulse Oximetry 97 Oxygen Delivery 05/29/24 22:23 05/29/24 20:00 05/29/24 20:00 Temperature 97.7 F Pulse Rate 58 L 57 L Respiratory Rate 16 Blood Pressure 135/54 L Pulse Oximetry 94 Oxygen Delivery Room Air 05/30/24 00:00 05/30/24 04:00 05/30/24 06:00 Temperature 97.3 F L Pulse Rate 49 L 55 L 61 Respiratory Rate 16 Blood Pressure 143/67 H Pulse Oximetry 93 Oxygen Delivery 05/30/24 09:08 05/30/24 09:33 05/30/24 09:27 Temperature 97.7 F Pulse Rate 83 58 L Respiratory Rate 18 Blood Pressure 154/56 H Pulse Oximetry 94 Oxygen Delivery Room Air 05/30/24 13:57 Temperature 98.1 F Pulse Rate 58 L Respiratory Rate 19 Blood Pressure 105/49 L Pulse Oximetry 95 Oxygen Delivery Intake/Output Intake/Output: Intake & Output 05/27/24 05/28/24 05/29/24 05/30/24 23:59 23:59 23:59 23:59 Intake Total 740 2210 1270 1060 Output Total 1500 2900 950 1100 Balance -760 -284 320 -40 Meds/Results Medications: Active Medications Generic Name Dose Route Start Last Admin Trade Name Freq PRN Reason Stop Dose Admin Acetaminophen 650 mg 05/27/24 05:23 Acetaminoph
[2024-05-30 17:31] LABS: Glucose Point of Care 238 mg/dl (65-105)
[2024-05-30] MEDS: INSULIN ASPART (*BKC) 100 UNITS/ML 6 UNITS SUB-Q (21:39)
[2024-05-31] VITALS (11 sets, daily range): BP systolic 111–157; BP diastolic 43–84; PULSE 51–66; RESP 16–19; TEMP 36.3–36.6; O2SAT 94–98
[2024-05-31 04:49] LABS: Glucose Point of Care 316 mg/dl (65-105)
[2024-05-31 04:57] LABS: Basophils Percent Auto 0.3 % (0.2-1.2); Eosinophils Absolute Auto 0.5 K/mm3 (0-0.3); Eosinophils Percent Auto 5.9 % (0-4.4); Hematocrit 37.1 % (37.0-47.0); Hemoglobin 12.2 g/dL (12.0-15.0); Immature Granulocyte Absolute 0.05 K/mm3 (0.00-0.031); Immature Granulocyte Percent A 0.6 % (0-0.5); Lymphocytes Absolute Auto 1.77 K/mm3 (0.9-3.2); Mean Corpuscular HGB Conc 32.9 g/dl (32-36); Mean Corpuscular Hemoglobin 31.3 pg (26-34); Mean Corpuscular Volume 95.1 fl (80-100); Mean Platelet Volume 10.9 fl (7.4-10.4); Monocytes Absolute Auto 0.6 K/mm3 (0.1-0.6); Monocytes Percent Auto 7.1 % (2.6-8.5); Neutrophils Absolute Auto 5.9 K/mm3 (1.3-6.7); Neutrophils Percent Auto 66.1 % (45.5-73.1); Platelet Count Result 166 k/mm3 (150-375); White Blood Count 8.9 K/mm3 (4.5-10.0)
[2024-05-31 05:11] LABS: Alanine Aminotransferase 28 U/L (6-35); Albumin Level 3.4 g/dL (3.5-5.1); Alkaline Phosphatase 76 U/L (38-126); Anion Gap 6 mmol/L (4-12); Aspartate Amino Transferase 31 U/L (14-36); Bilirubin,Total 0.8 mg/dL (0.2-1.3); Blood Urea Nitrogen 40 mg/dL (7-17); Calcium 8.5 mg/dL (8.4-10.2); Carbon Dioxide 29 mmol/L (22-30); Chloride 103 mmol/L (98-107); Estimated Glomerular Filt Rate 59; Glucose 200 mg/dL (65-110); Magnesium 2.3 mg/dL (1.6-2.3); Potassium 3.2 mmol/L (3.4-5.0); Sodium 138 mmol/L (137-145)
[2024-05-31 08:45] LABS: Glucose Point of Care 213 mg/dl (65-105)
[2024-05-31] MEDS: hydroCHLOROthiazide 12.5 MG CAPSULE PO (09:11)
[2024-05-31] MEDS: ASPIRIN 81 MG ENTERIC TABLET PO (09:11)
[2024-05-31] MEDS: CLOPIDOGREL BISULFATE 75 MG TABLET PO (09:11)
[2024-05-31] MEDS: amLODIPine BESYLATE 10 MG TABLET PO (09:11)
[2024-05-31] MEDS: SACUBITRIL/VALSARTAN 97-103 MG TABLET 1 TAB PO ×2 (09:11→20:12)
[2024-05-31] MEDS: MELOXICAM 7.5 MG TABLET PO (09:12)
[2024-05-31] MEDS: EMPAGLIFLOZIN 10 MG TABLET PO (09:12)
[2024-05-31] MEDS: SERTRALINE HCL 50 MG TABLET PO ×2 (09:12→20:12)
[2024-05-31] MEDS: carvediloL 12.5 MG TABLET PO ×2 (09:12→20:12)
[2024-05-31] MEDS: ENOXAPARIN 40 MG/0.4 ML SYRINGE SUB-Q (09:13)
[2024-05-31] MEDS: ATORVASTATIN 20 MG TABLET PO (09:13)
[2024-05-31] MEDS: INSULIN ASPART (*BKC) 100 UNITS/ML SUB-Q ×3 (09:14→18:36)
[2024-05-31 12:22] LABS: Glucose Point of Care 320 mg/dl (65-105)
--- NOTE | 2024-05-31 14:03 | PM.IMPN ---
Progress Note: A&P Assessment and Plan (1) Syncope: Code(s): R55 - Syncope and collapse Status: Acute Assessment and Plan: Syncope Head CT without signs of intracranial bleeding ECHO showed EF 40-45% Troponin elevated, declined intervention dizziness resolve (2) Hypertensive crisis: Code(s): I16.9 - Hypertensive crisis, unspecified Status: Acute Assessment and Plan: Chest x-ray with cardiomegaly and equivocal with pulm edema CT chest negative for Pneumonia or pulm edema Troponin elevated continue home Coreg, Irbesatan, Amlodipine and HCTZ Nitro discontinued BP now controlled (3) Type 2 diabetes mellitus with hyperglycemia: Qualifiers: Diabetes mellitus ocean transportation intermediary insulin use: without fpc use Qualified Code(s): E11.65 - Type 2 diabetes mellitus with hyperglycemia Code(s): E11.65 - Type 2 diabetes mellitus with hyperglycemia Status: Acute Assessment and Plan: ACHS fingerstick glucose with high dose SSI Hold metformin in hospital (4) Obstructive sleep apnea (adult) (pediatric): Code(s): G47.33 - Obstructive sleep apnea (adult) (pediatric) Status: Acute Assessment and Plan: May use AutoPAP as needed (5) Troponin level elevated: Code(s): R79.89 - Other specified abnormal findings of blood chemistry Status: Acute Assessment and Plan: Troponin elevated 0.430 to 0.335 to 0.106 Patient declined intervention cardiology following that recommends medication treatment Continue Coreg, Irbesatan, Amlodipine and Lipitor cardiology following Plan DVT prophylaxis subQ Lovenox PT/OT recommends SNF awaiting SNF placement Subjective Date/time seen: 05/31/24 14:03 Interval history: Patient comfortable at bedside PT/OT recommended SNF awaiting placement Review of Systems Review of Systems: All systems reviewed & are unremarkable except as noted in HPI and below Exam Narrative: GENERAL: Well-appearing, well-nourished, and in no acute distress. HEAD: Normocephalic, atraumatic. EYES: PERRLA and EOMI. ENT: Nares clear, no rhinorrhea or epistaxis. Mucous membranes moist. NECK: Supple. CHEST: Mild rales worse in the left lower HEART: Regular rate and rhythm. Normal peripheral pulses. ABDOMEN: Soft, nontender, nondistended, normal active bowel sounds. EXTREMITIES: Normal range of motion. Bilateral lower extremity swelling right greater than left SKIN: Warm, dry, no rash. NEURO: No focal deficits. Alert and oriented x3. PSYCH: Normal mood and affect. Objective Data Vital Signs Vital Signs: Vital Signs - 24 hr 05/30/24 16:00 05/30/24 19:52 05/30/24 21:34 Temperature Pulse Rate 55 L 62 Respiratory Rate Blood Pressure Pulse Oximetry Oxygen Delivery Room Air 05/30/24 22:00 05/30/24 20:00 05/31/24 00:00 Temperature 97.1 F L Pulse Rate 62 58 L 53 L Respiratory Rate 16 Blood Pressure 153/62 H Pulse Oximetry 93 Oxygen Delivery 05/31/24 04:00 05/31/24 06:00 05/31/24 09:12 Temperature 97.4 F L Pulse Rate 53 L 58 L 66 Respiratory Rate 16 Blood Pressure 141/55 H Pulse Oximetry 94 Oxygen Delivery 05/31/24 09:39 05/31/24 14:02 Temperature 97.7 F 97.9 F Pulse Rate 65 56 L Respiratory Rate 17 19 Blood Pressure 128/84 111/43 L Pulse Oximetry 98 96 Oxygen Delivery Intake/Output Intake/Output: Intake & Output 05/28/24 05/29/24 05/30/24 05/31/24 23:59 23:59 23:59 23:59 Intake Total 2210 1270 1700 1340 Output Total 2900 950 1100 700 Balance -690 320 600 640 Meds/Results Medications: Active Medications Generic Name Dose Route Start Last Admin Trade Name Freq PRN Reason Stop Dose Admin Acetaminophen 650 mg 05/27/24 05:23 Acetaminophen 325 Mg Tablet PO Q4H PRN Pain, headache, fever Albuterol 2 puff 05/27/24 05:27 Albuterol Sulfate (*Sp) Aerosol 1 Puff INHALATION Q4H PRN shortness o
[2024-05-31 17:15] LABS: Glucose Point of Care 266 mg/dl (65-105)
[2024-05-31] MEDS: INSULIN GLARGINE (*BKC) 100 UNITS/ML 10 UNITS SUB-Q (20:14)
[2024-05-31 21:10] LABS: Glucose Point of Care 323 mg/dl (65-105)
[2024-06-01] VITALS: PULSE 50
[2024-06-01 04:00] VITALS: PULSE 49
[2024-06-01 04:10] VITALS: BP 150/61; PULSE 55; RESP 16; TEMP 36.3; O2SAT 98
[2024-06-01 06:08] LABS: Basophils Percent Auto 0.5 % (0.2-1.2); Eosinophils Absolute Auto 0.5 K/mm3 (0-0.3); Eosinophils Percent Auto 6.2 % (0-4.4); Hematocrit 36.8 % (37.0-47.0); Hemoglobin 11.8 g/dL (12.0-15.0); Immature Granulocyte Absolute 0.03 K/mm3 (0.00-0.031); Immature Granulocyte Percent A 0.4 % (0-0.5); Lymphocytes Absolute Auto 1.81 K/mm3 (0.9-3.2); Lymphocytes Percent Auto 22.6 % (18.3-44.2); Mean Corpuscular HGB Conc 32.1 g/dl (32-36); Mean Corpuscular Hemoglobin 30.6 pg (26-34); Mean Corpuscular Volume 95.6 fl (80-100); Mean Platelet Volume 11.1 fl (7.4-10.4); Monocytes Absolute Auto 0.6 K/mm3 (0.1-0.6); Monocytes Percent Auto 7.1 % (2.6-8.5); Neutrophils Absolute Auto 5.1 K/mm3 (1.3-6.7); Neutrophils Percent Auto 63.2 % (45.5-73.1); Platelet Count Result 167 k/mm3 (150-375); Red Blood Count 3.85 M/mm3 (4.2-5.4); Red Cell Distribution Width 14.2 % (11.5-14.5)
[2024-06-01 06:21] LABS: Alanine Aminotransferase 27 U/L (6-35); Albumin Level 3.4 g/dL (3.5-5.1); Alkaline Phosphatase 77 U/L (38-126); Anion Gap 7 mmol/L (4-12); Aspartate Amino Transferase 26 U/L (14-36); Bilirubin,Total 0.9 mg/dL (0.2-1.3); Blood Urea Nitrogen 39 mg/dL (7-17); Calcium 8.4 mg/dL (8.4-10.2); Carbon Dioxide 29 mmol/L (22-30); Chloride 101 mmol/L (98-107); Estimated Glomerular Filt Rate 52; Glucose 219 mg/dL (65-110); Magnesium 2.3 mg/dL (1.6-2.3); Potassium 3.1 mmol/L (3.4-5.0); Sodium 137 mmol/L (137-145)
[2024-06-01 08:19] LABS: Glucose Point of Care 202 mg/dl (65-105)
[2024-06-01 08:51] VITALS: PULSE 56
[2024-06-01] MEDS: ENOXAPARIN 40 MG/0.4 ML SYRINGE SUB-Q (08:51)
[2024-06-01] MEDS: carvediloL 12.5 MG TABLET PO (08:51)
[2024-06-01] MEDS: SACUBITRIL/VALSARTAN 97-103 MG TABLET 1 TAB PO (08:51)
[2024-06-01] MEDS: ATORVASTATIN 20 MG TABLET PO (08:52)
[2024-06-01] MEDS: ASPIRIN 81 MG ENTERIC TABLET PO (08:52)
[2024-06-01] MEDS: MELOXICAM 7.5 MG TABLET PO (08:52)
[2024-06-01] MEDS: SERTRALINE HCL 50 MG TABLET PO (08:52)
[2024-06-01] MEDS: amLODIPine BESYLATE 10 MG TABLET PO (08:52)
[2024-06-01] MEDS: EMPAGLIFLOZIN 10 MG TABLET PO (08:52)
[2024-06-01] MEDS: hydroCHLOROthiazide 12.5 MG CAPSULE PO (08:52)
[2024-06-01] MEDS: CLOPIDOGREL BISULFATE 75 MG TABLET PO (08:52)
[2024-06-01] MEDS: INSULIN ASPART (*BKC) 100 UNITS/ML SUB-Q ×2 (08:53→12:20)
[2024-06-01 12:00] LABS: Glucose Point of Care 234 mg/dl (65-105)
--- NOTE | 2024-06-01 12:08 | PM.DS ---
DS: Admitting Diagnosis Discharge Date 06/01/24 Admitting Diagnosis sYNCOPE DS: Discharge Diagnosis Discharge Diagnosis (1) Cardiomyopathy: Code(s): I42.9 - Cardiomyopathy, unspecified Status: Acute (2) NSTEMI (non-ST elevated myocardial infarction): Code(s): I21.4 - Non-ST elevation (NSTEMI) myocardial infarction Status: Acute (3) Hypertensive crisis: Code(s): I16.9 - Hypertensive crisis, unspecified Status: Acute DS: Summary Hospital Course Hospital Course: This is an 89-year-old female patient admitted to the hospital for severe hypertension syncope minor head injury. Patient was at home ambulatory with dizzy and fell nearly passing struck the back of her head on the ground. EMS found her severely hypertensive brought her to the emergency department. Patient does take Eliquis. CT scan of the head no evidence of intracranial bleeding. Blood pressure did improve without immediate intervention. EKG nonischemic. No known history of CHF. One-view chest x-ray with possible pulmonary edema and mild cardiomegaly. Patient complaining some chest tightness. Initial troponin was not elevated but was not flat, we will trend troponin. Add BNP and echocardiogram. Nitro paste applied for chest tightness, hypertension and possible pulmonary edema. PATIENT WAS EVALUATED BY CARDIOLOGY UNDERWENT CARDIAC CATHETERIZATION WAS RECOMMENDED WHICH SHE DECLINED. echo showed EF 25-30%, falls she was started on aspirin, Plavix, Coreg, Lipitor and Entresto. Amlodipine and Hydrochlorothiazide was added for blood pressure control. Blood pressure ocntrolled. Dizziness resolved. No chest pain patient was evaluated PT OT and longterm facility was recommended. She was discharged to SNF today to follow up with primary care in 3-5 days and Cardiology as instructed. Assessment and Plan (1) Syncope: Code(s): R55 - Syncope and collapse Status: Acute Assessment and Plan: Syncope Head CT without signs of intracranial bleeding ECHO showed EF 40-45% Troponin elevated, declined intervention dizziness resolve (2) Hypertensive crisis: Code(s): I16.9 - Hypertensive crisis, unspecified Status: Acute Assessment and Plan: Chest x-ray with cardiomegaly and equivocal with pulm edema CT chest negative for Pneumonia or pulm edema Troponin elevated continue home Coreg, Entresto, Amlodipine and HCTZ Nitro discontinued BP now controlled (3) Type 2 diabetes mellitus with hyperglycemia: Qualifiers: Diabetes mellitus assistant terminal manager insulin use: without assistant terminal manager use Qualified Code(s): E11.65 - Type 2 diabetes mellitus with hyperglycemia Code(s): E11.65 - Type 2 diabetes mellitus with hyperglycemia Status: Acute Assessment and Plan: Continue home metformin (4) Obstructive sleep apnea (adult) (pediatric): Code(s): G47.33 - Obstructive sleep apnea (adult) (pediatric) Status: Acute Assessment and Plan: May use AutoPAP as needed (5) Troponin level elevated: Code(s): R79.89 - Other specified abnormal findings of blood chemistry Status: Acute Assessment and Plan: Troponin elevated 0.430 to 0.335 to 0.106 Patient declined intervention cardiology following that recommends medication treatment Continue Coreg, Entresto, Aspirin, plavix and Lipitor. Amlodipine and Lipitor cardiology following F/u with cardiology as instructed F/[facility] PCP in 3-5 days Time Spent with Patient Time attestation: Total time spent providing and/or coordinating discharge services: DS: Data Data Completed and Pending Labs on day of discharge: Labs from last 24 hours 06/01/24 06/01/24 06/01/24 11:35 08:05 05:30 WBC RBC Hgb Hct MCV MCH MCHC RDW Plt Count MPV Immature Gran % (Auto) Neut % (Auto) Lymph % (Auto) [place] % (Auto) Eos % (Auto) Baso % (Auto) Lymph
[2024-06-01 12:37] LABS: Glucose Point of Care 215 mg/dl (65-105)
== END 2024-06-01 14:18 | DRG 281 ==
LOC: ANHED 05-27 03:49 → ANHIMU 05-27 04:27 → ANH3MED 05-28 17:59
PROVIDERS: Nurse Practitioner; Admitting Provider Internal Medicine; Emergency Provider Emergency Medicine; PCP Family Medicine; Visit Provider Internal Medicine
DX: I21.4 Non-ST elevation (NSTEMI) myocardial infarction (principal); F32.0 Major depressive disorder, single episode, mild; I16.9 Hypertensive crisis, unspecified; I42.9 Cardiomyopathy, unspecified; I10 Essential (primary) hypertension; E11.9 Type 2 diabetes mellitus without complications; R55 Syncope and collapse; R79.89 Other specified abnormal findings of blood chemistry; G47.33 Obstructive sleep apnea (adult) (pediatric); Z85.3 Personal history of malignant neoplasm of breast; Z79.01 Long term (current) use of anticoagulants
CPT/HCPCS: 36415; 70450; 71045; 71250; 80053; 81001; 82948; 83036; 83605; 83735; 83880; 84484; 85025; 93005; 93970; 97110; 97116; 97161; 97165; 97530; 97535; 99285; A9270; C8929; J1650; J1815; Q9957